=== PATIENT | female | born 1935 | race Caucasian/White ===

== ENCOUNTER 2017-07-15 13:54 | Emergency (ER) | payer OTHER ==
[~2017-07-15] VITALS: Ht 152.4 cm; Wt 45.4 kg
[~2017-07-15 13:54] MED LIST: DICLOFENAC SODI50 MG PO; OSEL75CA PO; TUSSI PRES-B L120 M1 PO
== END 2017-07-15 21:10 | disposition home or self-care (01) ==
LOC: ER 13:54
DX: R51 Headache (principal); I10 Essential (primary) hypertension